=== PATIENT | male | born 1955 | race Two or more races ===

== ENCOUNTER 2025-01-28 10:47 | Inpatient (IN) | payer OTHER ==
[~2025-01-28] VITALS: Ht 180.3 cm; Wt 93.5 kg
--- NOTE | 2025-01-28 11:00 | ECG ---
[facility] Test Date: 2025-01-28 Test Time: 10:55:41 Pat Name: CARRIE HANKINS Department: ED Room: 0292T Gender: M [employer]: NBA : 1955 Requested By: ZEE SANCHES Order Number: [id number] Reading MD: Mann Castillo Measurements Intervals [place] Rate: 50 P: 19 MO: 162 QRS: -21 QRSD: 94 T: 27 QT: 450 QTc: 411 Interpretive Statements Sinus rhythm Borderline left axis deviation Electronically Signed On 01-30-2025 18:44:22 PDT by Mann Castillo Please click the below link to view image of tracing.
--- NOTE | 2025-01-28 11:08 | ED.PDOC ---
HPI (NEURO) HPI Comments This is a 69 year old male presenting to the ED with chief complaint of dizziness. Patient reports that he has been experiencing intermittent dizziness since yesterday. Patient relays that while at the gym yesterday, he sat on a bench to do a work out and began to experience dizziness with an associated feeling of falling off the bench. Patient states that this morning when getting out of bed and standing up, he felt dizzy and needed to lay back down to resolve his symptoms. Patient denies any chest pain, headache, syncope, SOB, N/V, hematemesis, or melena. Chief Complaint: Dizziness Time Seen by MD: 11:06 Reviewed Notes: Nurses Notes, Medications, Allergies Information Source: Patient Mode of Arrival: Ambulatory Severity: Moderate Dizziness/Weakness Severity: Unable to do activities Timing: Days Duration: Intermittent Prehospital treatment: None Onset: At rest, With light exertion Circumstances: Spontaneous Symptoms: Vertigo History of: None Modifying factors: Nothing Past Medical History PAST MEDICAL HISTORY: Cancer (Prostate), HTN Past Medical History (Other): Prediabetes Surgical History: Denies all surgeries Family History Family History: Reviewed,noncontributory to illness, Family hx of Cancer, Family hx of heart antione Social History Smoker: Non-Smoker Alcohol: Denies ETOH Use Drugs: Denies Drug Use Lives In: Home Constitutional: denies: chills, diaphoresis, fatigue, fever, malaise, sweats, weakness, others EENTM: denies: blurred vision, double vision, ear bleeding, ear discharge, ear drainage, ear pain, ear ringing, eye pain, eye redness, hearing loss, mouth pain, mouth swelling, nasal discharge, nose bleeding, nose congestion, nose pain, photophobia, tearing, throat pain, throat swelling, voice changes, others Respiratory: denies: cough, hemoptysis, orthopnea, SOB at rest, shortness of breath, SOB with excertion, stridor, wheezing, others Cardiovascular: denies: chest pain, dizzy spells, diaphoresis, Dyspnea on exertion, edema, irregular heart beat, left arm pain, lightheadedness, palpitations, PND, syncope, others Gastrointestinal: denies: abdomen distended, abdominal pain, blood streaked bowels, constipated, diarrhea, dysphagia, difficulty swallowing, hematemesis, melena, nausea, poor appetite, poor fluid intake, rectal bleeding, rectal pain, vomiting, others Genitourinary: denies: burning, dysuria, flank pain, frequency, hematuria, incontinence, penile discharge, penile sore, pain, testicle pain, testicle swelling, urgency, others Neurological: reports: dizziness; denies: fainting, headache, left sided numbness, left sided weakness, numbness, paresthesia, pre-existing deficit, right sided numbness, right sided weakness, seizure, speech problems, tingling, tremors, weakness, others Musculoskeletal: denies: back pain, gout, joint pain, joint swelling, muscle pain, muscle stiffness, neck pain, others Integumetry: denies: bruises, change in color, change in hair/nails, dryness, laceration, lesions, lumps, rash, wounds, others Allergic/Immunocompromised: denies: Difficulty Healing, Frequent Infections, Hives, Itching, others Hematologic/Lymphatic: denies: anemia, blood clots, easy bleeding, easy bruising, swollen glands, others Endocrine: denies: excessive hunger, excessive sweating, excessive thirst, excessive urination, flushing, intolerance to cold, intolerance to heat, unexplained weight gain, unexplained weight loss, others Psychiatric: denies: anxiety, bipolar disorder, depression, hopeless, panic disorder, schizophrenia, sleepless, suicidal, others All Other Systems: Reviewed and Negative Physical Exam General Appearance: Moderate Distress HEENT: Normal ENT Inspection, Pharynx Normal, TMs Normal Neck: Full Range of Motion, Non-Tender, Normal, Normal Inspection Respiratory: Chest Non-Tender, Lungs Clear, No Accessory Muscle Use, No Respiratory Distress, Normal Breath Sounds Cardiovascular: Bradycardia, No Edema, No JVD, No Murmur, No Gallop Breast Exam: Deferred Gastrointestinal: No Organomegaly, Non Tender, No Pulsatile Mass, Normal Bowel Sounds, Soft Genitalia: Deferred Pelvic: Deferred Rectal: Deferred Extremities: No calf tenderness, Normal capillary refill, No pedal edema Musculoskeletal : Apperance: Normal 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 Was a procedure done?: No Differential Diagnosis (SZ) Seizure: CVA/TIA, Syncope, Other (Bradycardia) X-Ray, Labs, Meds, VS Vital Signs Date Time Temp Pulse Resp B/P (MAP) Pulse Ox O2 Delivery O2 Flow Rate FiO2 01/28/25 12:00 53 01/28/25 10:48 97.9 33 16 134/86 99 97.9 Lab Test 01/28/25 12:00 01/28/25 11:13 01/28/25 11:05 Range/Units Troponin I High Sensitivity 3 L 3 L </=54 ng/L White Blood Count 3.9 L 4.4-10.8 10^3/uL Red Blood Count 5.12 4.5-5.90 10^6/uL Hemoglobin 13.9 13.5-17.5 g/dL Hematocrit 42.0 41.0-53.0 % Mean Corpuscular Volume 82.1 80.0-100.0 fL Mean Corpuscular Hemoglobin 27.1 L 28.0-32.0 pg Mean Corpuscular Hemoglobin Concent 33.0 32.0-36.0 g/dL Red Cell Distribution Width 14.9 H 11.8-14.3 % Platelet Count 271 140-450 10^3/uL Mean Platelet Volume 8.5 6.9-10.8 fL Neutrophils (%) (Auto) 65.0 37.0-80.0 % Lymphocytes (%) (Auto) 17.6 10.0-50.0 % Monocytes (%) (Auto) 14.7 H 0.0-12.0 % Eosinophils (%) (Auto) 2.3 0.0-7.0 % Basophils (%) (Auto) 0.4 0.0-2.0 % Neutrophils # (Auto) 2.6 1.6-8.6 10 ^3/uL Lymphocytes # (Auto) 0.7 0.4-5.4 10 ^3/uL Monocytes # (Auto) 0.6 0-1.3 10 ^3/uL Eosinophils # (Auto) 0.1 0-0.8 10 ^3/uL Basophils # (Auto) 0 0-0.2 10 ^3/uL Nucleated Red Blood Cells 0.0 % Sodium Level 140 136-145 mmol/L Potassium Level 3.6 3.5-5.1 mmol/L Chloride Level 107 98-107 mmol/L Carbon Dioxide Level 26 20-31 mmol/L Anion Gap 7 5-15 Blood Urea Nitrogen 11 9-23 mg/dL Creatinine 0.77 0.700-1.30 mg/dL Glomerular Filtration Rate Calc 96 >90 mL/min BUN/Creatinine Ratio 14.3 10.0-20.0 Serum Glucose 119 H 74-106 mg/dL Calcium Level 8.9 8.7-10.4 mg/dL Magnesium Level 2.0 1.6-2.6 mg/dL Urine Color Light-yellow Yellow Urine Clarity Clear Clear Urine pH 6.0 5.0-9.0 Urine Specific [place] 1.022 1.001-1.035 Urine Protein Negative Negative Urine Ketones Negative Negative Urine Blood Negative Negative /uL Urine Nitrite Negative Negative Urine Bilirubin Negative Negative Urine Urobilinogen Normal Negative mg/dL Urine Leukocyte Esterase Negative Negative /uL Urine RBC 203 0 - 3 /hpf Urine Microscopic WBC 1 0-3 /HPF Urine Squamous Epithelial Cells None seen <5 /hpf Urine Bacteria None seen None Seen /hpf Urine Mucus Few None Seen Urine Yeast (Budding) Occasional None Seen /hpf Urine Glucose Normal Normal mg/dL Chest XR indicates: Old granulomatous disease of the chest without evidence of acute intrathoracic process. Head CT indicates: No acute intracranial abnormality. IV Hep-Lock was established. The patient's heart rate has been as low as 33. The urine test is negative for any infection. The CBC is within normal limits The chemistry panel is within normal limits. There is a concern that the patient is having persistent bradycardia. We contacted [place] and we were given authorization The authorization #[id number] The patient will be admitted Images Reviewed?: Images reviewed and evaluated by me Time of 1ST Reevaluation: 14:25 Reevaluation 1ST: Unchanged Patient Education/Counseling: Diagnosis, Treatment, Prognosis Family Education/Counseling: No Family Present Departure 1 Departure Time of Disposition: 14:29 Impression: Primary Impression: Near syncope Additional Impression: Symptomatic bradycardia Disposition: 09 ADMITTED INPATIENT Admit to: [facility] Condition: Fair Critical Care Note Critical Care Time?: Yes (55 min-critical care time only) Stability Stability form required: Yes Unstable for transfer: Telemetry monitoring, ED Physician Assesment (Clinical assesment) Heart Score Heart Score: Heart Score Response (Comments) Value History Moderate Suspicious 1 EKG Normal 0 Age >65 2 Risk Factors >3 or Hx ASHD 2 Troponin Normal limit 0 Total 5 I personally scribed for ZEE SANCHES MD ([email or web address]) on 01/28/25 at 11:08. Electronically submitted by Inderjit Doss ([email or web address]). I personally scribed for ZEE SANCHES MD ([email or web address]) on 01/28/25 at 12:10. Electronically submitted by Inderjit Doss ([email or web address]). I personally scribed for ZEE SANCHES MD ([email or web address]) on 01/28/25 at 14:20. Electronically submitted by Inderjit Doss ([email or web address]). ZEE SANCHES MD Jan 28, 2025 11:08
[2025-01-28 11:43] LABS: Hematocrit 42.0 % (41.0-53.0); Hemoglobin 13.9 g/dL (13.5-17.5); Mean Corpuscular Hemoglobin 27.1 pg (28.0-32.0); Mean Corpuscular Volume 82.1 fL (80.0-100.0); Nucleated Red Blood Cells % 0.0 %
[2025-01-28 11:49] LABS: Potassium 3.6 mmol/L (3.5-5.1); Sodium 140 mmol/L (136-145)
[2025-01-28 11:50] LABS: Anion Gap 7 (5-15); Carbon Dioxide 26 mmol/L (20-31)
[2025-01-28 11:51] LABS: Calcium 8.9 mg/dL (8.7-10.4); Chloride 107 mmol/L (98-107)
[2025-01-28 11:55] LABS: BUN/Creatinine Ratio 14.3 (10.0-20.0); Blood Urea Nitrogen 11 mg/dL (9-23)
[2025-01-28 11:56] LABS: Glucose 119 mg/dL (74-106)
--- NOTE | 2025-01-28 12:05 | DVH ---
EXAM: XY CHEST PORTABLE HISTORY: Dizziness and near-syncope COMPARISON: None TECHNIQUE: Portable upright AP view of the chest was performed. FINDINGS: No pneumothorax, consolidative infiltrates, or pulmonary edema. There are calcified granulomas in the right lower lobe. The heart is not enlarged. There is thoracic degenerative disc disease. IMPRESSION: Old granulomatous disease of the chest without evidence of acute intrathoracic process.
--- NOTE | 2025-01-28 12:12 | DVH ---
CT HEAD WITHOUT CONTRAST INDICATION: dizziness EXAM DATE: 01/28/2025 11:32 AM COMPARISON: None RADIATION DOSE: CTDIvol: 68.88 mGy, DLP: 1356.96 mGy*cm PROCEDURE: CT scans of the head were obtained from the vertex to the skull base. Sagittal and coronal reconstructions were provided. All CT scans at this medical facility are performed using dose modulation techniques as appropriate t o a performed exam including the following: Automated exposure control was utilized; adjustment of th e MA and/or KV according to patient size; and use of iterative reconstruction technique. FINDINGS: There is sulcal and ventricular prominence. The brainshows normal morphology and donovan-whi te matter differentiation, without intracranial hemorrhage, extra-axial fluid collection, mass effect or acute large vessel infarct. The ventricles are normal in size. The basal cisterns are patent. The skull and visible facial bones are intact. The paranasal sinuses, mastoid air cells and middle ear c avities are well-aerated. The soft tissues of the scalp are unremarkable. IMPRESSION: No acute intracranial abnormality.
[2025-01-28 12:15] LABS: Urine Budding Yeast OCCASIONAL /hpf (None Seen); Urine Protein, UAD Negative (Negative)
[2025-01-28 13:20] VITALS: PULSE 49; RESP 21; O2SAT 98
[2025-01-28] MEDS ORDERED: DEXTROSE (50%) 50ML SYRG IV PRN (15:45)
[2025-01-28] MEDS ORDERED: MORPHINE SULFATE INJ 2 MG/ml SYRG IV PRN (15:45)
[2025-01-28] MEDS ORDERED: NITROGLYCERIN 0.4 MG SL TAB SL PRN (15:45)
[2025-01-28] MEDS ORDERED: ONDANSETRON HCL 4 MG/2 ML VIAL IV PRN (15:45)
[2025-01-28] MEDS ORDERED: ACETAMINOPHEN 325 MG TAB PO PRN (15:45)
[2025-01-28] MEDS: InsuLIN REG 1unit/0.01ml Soln (100units/ml) SC SCH (17:00)
[2025-01-28] MEDS: ACCU-CHEK COMFORT CURVE STRIP VI SCH (17:00)
[2025-01-28] MEDS ORDERED: POTASSIUM CHL 20 Meq TABLET PO ONE (17:30)
[2025-01-28] MEDS ORDERED: MAGNESIUM SULFATE 1GM/100ML 100 ML IV ONE (17:30)
--- NOTE | 2025-01-28 17:39 | DVHINCON2 ---
Date Seen: Jan 28, 2025 Referring Physician MARYJO Stanford Reason for Consultation Bradycardia History of Present Illness This is a pleasant 69-year-old man who presented to the emergency room with a chief complaint of dizziness since yesterday. The patient reports he had a very active day where he played pickleball, performed bike intervals for approximately 50 minutes, and performed some weight lifting on a binge when he developed a sudden onset of left-sided weakness and dizziness for approximately 3 minutes. States earlier this morning he stood up from bed with some dizziness. Denies LOC, syncope, visual disturbances, chest pain, SOB, or palpitations. The patient endorses he took his Flomax therapy at night for the first time along with his routine nightly lisinopril believing this could have triggered some of the symptoms. He also reports intermittent headaches for the past two weeks. He underwent a 12 lead electrocardiogram revealing a normal sinus rhythm with no evidence of atrioventricular blocks or sinus pauses. residential monitor reviewed revealing a heart rate as low as 45 bpm with evidence of intermittent ventricular bigeminy. Serial troponin levels are negative. 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 Past Medical History Past medical history reviewed. No other significant than mentioned above. Past Surgical History Past Surgical history reviewed. No other significant than mentioned above. Family History Family history reviewed. Social History Denies the use of illicit drugs, alcohol, or tobacco use. Allergies: Coded Allergies: Penicillins (Verified Allergy, Unknown, 01/28/25) Home Meds Home medications reviewed. Current Medications Current Medications Medications (Trade) Dose Ordered Sig/Yamila Route PRN Reason Start Time Stop Time Status Last Admin Diagnostic Test (Pha) (Accu-Chek Comfort Curve T) 1 strip ACHS 01/28/25 17:00 UNV Insulin Human Regular (InsuLIN R) ACHS SC 01/28/25 17:00 UNV Dextrose 50 ml UD PRN IV Blood Sugar LESS THAN 60 01/28/25 15:45 UNV Ondansetron HCl (Zofran) 4 mg Q4HP PRN IV NAUSEA / VOMITING 01/28/25 15:45 UNV Enoxaparin Sodium (Lovenox) 40 mg DAILY SC 01/29/25 10:00 UNV Acetaminophen (Tylenol Tablet) 650 mg Q6HP PRN PO PAIN SCALE 1-3 OR TEMP>100.4 01/28/25 15:45 UNV Nitroglycerin (Ntrostat Sublingual) 0.4 mg Q5MINP PRN SL FOR CHEST PAIN 01/28/25 15:45 UNV Morphine Sulfate 2 mg Q30M PRN IV FOR CHEST PAIN 01/28/25 15:45 UNV Aspirin 81 mg DAILY PO 01/29/25 10:00 UNV Lisinopril (Zestril Tablet) 10 mg DAILY PO 01/29/25 10:00 UNV Tamsulosin HCl (Flomax) 0.4 mg QPM PO 01/28/25 18:00 UNV Review of Systems Constitutional: No symptom reported Ears, Nose, & Throat: No symptom reported Eyes: No symptom reported Neurological: Dizziness, left-sided weakness Pulmonary/Respiratory: No symptom reported Cardiovascular: No symptom reported Gastrointestinal: No symptom reported Genitourinary: No symptom reported Musculoskeletal: No symptom reported Skin: No symptom reported Psychiatric: No symptom reported Endocrine: No symptom reported Hemotologic/Lymphatic: No symptom reported Vital Signs Vital Signs Date Time Temp Pulse Resp B/P (MAP) Pulse Ox O2 Delivery O2 Flow Rate FiO2 01/28/25 15:00 97.5 51 18 137/72 (93) 98 97.5 01/28/25 13:20 Room Air* 0 21 Physical Exam General Appearance: Cooperative. Well developed. Obesity. In no acute distress Head Exam: Normal inspection Neck Exam: Normal inspection. Non-tender. Normal alignment Pulmonary/Respiratory: Chest non-tender. Clear bilateral breath sounds Cardiovascular/Chest: Regular rate and rhythm. S1, S2. SR with intermittent bigeminy. No murmurs. No JVD. Peripheral Pulses: 2+ Radial (R). 2+ Radial (L). 2+ Pedal (R). 2+ Pedal (L) Abdominal Exam: Normal bowel sounds. Soft. Ankle Exam: Negative ankle edema Lower extremities: Negative lower extremity edema Neuro/Mental Status: A&O x4. Coherent Thoughts/Psych: Normal thought pattern. Appropriate mood and affect. Good judgement and insight Appearance: In no acute distress Skin Exam: Normal inspection. Normal color. Warm. Dry Labs/Diagnostic Data Labs Test 01/28/25 12:00 01/28/25 11:13 01/28/25 11:05 Range/Units Troponin I High Sensitivity 3 L </=54 ng/L White Blood Count 3.9 L 4.4-10.8 10^3/uL Red Blood Count 5.12 4.5-5.90 10^6/uL Hemoglobin 13.9 13.5-17.5 g/dL Hematocrit 42.0 41.0-53.0 % Mean Corpuscular Volume 82.1 80.0-100.0 fL Mean Corpuscular Hemoglobin 27.1 L 28.0-32.0 pg Mean Corpuscular Hemoglobin Concent 33.0 32.0-36.0 g/dL Red Cell Distribution Width 14.9 H 11.8-14.3 % Platelet Count 271 140-450 10^3/uL Mean Platelet Volume 8.5 6.9-10.8 fL Neutrophils (%) (Auto) 65.0 37.0-80.0 % Lymphocytes (%) (Auto) 17.6 10.0-50.0 % Monocytes (%) (Auto) 14.7 H 0.0-12.0 % Eosinophils (%) (Auto) 2.3 0.0-7.0 % Basophils (%) (Auto) 0.4 0.0-2.0 % Neutrophils # (Auto) 2.6 1.6-8.6 10 ^3/uL Lymphocytes # (Auto) 0.7 0.4-5.4 10 ^3/uL Monocytes # (Auto) 0.6 0-1.3 10 ^3/uL Eosinophils # (Auto) 0.1 0-0.8 10 ^3/uL Basophils # (Auto) 0 0-0.2 10 ^3/uL Nucleated Red Blood Cells 0.0 % Sodium Level 140 136-145 mmol/L Potassium Level 3.6 3.5-5.1 mmol/L Chloride Level 107 98-107 mmol/L Carbon Dioxide Level 26 20-31 mmol/L Anion Gap 7 5-15 Blood Urea Nitrogen 11 9-23 mg/dL Creatinine 0.77 0.700-1.30 mg/dL Glomerular Filtration Rate Calc 96 >90 mL/min BUN/Creatinine Ratio 14.3 10.0-20.0 Serum Glucose 119 H 74-106 mg/dL Calcium Level 8.9 8.7-10.4 mg/dL Magnesium Level 2.0 1.6-2.6 mg/dL Urine Color Light-yellow Yellow Urine Clarity Clear Clear Urine pH 6.0 5.0-9.0 Urine Specific [place] 1.022 1.001-1.035 Urine Protein Negative Negative Urine Ketones Negative Negative Urine Blood Negative Negative /uL Urine Nitrite Negative Negative Urine Bilirubin Negative Negative Urine Urobilinogen Normal Negative mg/dL Urine Leukocyte Esterase Negative Negative /uL Urine RBC 203 0 - 3 /hpf Urine Microscopic WBC 1 0-3 /HPF Urine Squamous Epithelial Cells None seen <5 /hpf Urine Bacteria None seen None Seen /hpf Urine Mucus Few None Seen Urine Yeast (Budding) Occasional None Seen /hpf Urine Glucose Normal Normal mg/dL Assessment Sinus bradycardia with intermittent ventricular bigeminy Rule out chronotropic incompetence Rule out structural heart disease Rule out orthostatic hypotension Prostate cancer with hx of radiation & current chemotherapy [id number] diabetes mellitus Hypertension Obesity Plan/Recommendation (Dr. Castillo) The patient with sinus bradycardia and no evidence of atrioventricular blocks or sinus pauses presents with intermittent ventricular bigeminy. Replenish potassium and magnesium levels. Obtain a transthoracic echocardiogram to evaluate cardiac function. Scheduled for a chronotropic response evaluation at first available. Obtain a set of orthostatic vital signs. Obtain UDS. Continue DVT/VTE prophylaxis. Monitor ECG changes closely and notify. Further orders per clinical course. Thank you for allowing us to participate in this patient's care. Please call if you have any questions or concerns. This medical document was created using an electronic medical record system with voice recognition software and computerized dictation system. Although this document has been carefully reviewed, there might still be some phonetic and typographical errors. Occasional wrong-word or ``sound-alike substitutions may have occurred due to the inherent limitations of voice recognition software. These areas are purely typographical due to imperfections of the software programs and do not reflect any compromise in the patient's medical care. Please read the chart carefully and recognize, using context, where these substitutions have occurred. Plan discussed with: Patient, Other NYHA Physical activity limitations: NA Date of Service: Jan 28, 2025 Billing Provider: KANDIS FERRER Cardiology Common Codes: [id number] INP/OBS CARE (High) KANDIS FERRER Jan 28, 2025 17:39
[2025-01-28 17:45] VITALS: BP 153/87; PULSE 61; RESP 18; TEMP 98.1; O2SAT 99
[2025-01-28 18:05] LABS: Amphetamine Screen, Urine Neg (NEGATIVE); Barbiturate Scree,Urine Neg (NEGATIVE); Benzodiazephine Screen, Urine Neg (NEGATIVE); Cannabinoid Screen, Urine Neg (NEGATIVE); Cocaine Screen, Urine Neg (NEGATIVE); Opiate Scree,Urine Neg (NEGATIVE); Phencyclidine Screen, Urine Neg (NEGATIVE)
[2025-01-28 18:06] VITALS: PULSE 61; RESP 16; O2SAT 99
[2025-01-28 18:08] LABS: Cholesterol 159 mg/dL (< 200); HDL Cholesterol 46 mg/dL (40-59); Triglycerides 244 mg/dL (< 150)
[2025-01-28] MEDS: TAMSULOSIN HYDROCHLORIDE 0.4 MG CAP PO SCH (18:38)
[2025-01-28] MEDS ORDERED: ABIR250T PO (19:01)
[2025-01-28] MEDS ORDERED: LISI2.5T47 PO (19:01)
[2025-01-28] MEDS ORDERED: PRE1T PO (19:01)
--- NOTE | 2025-01-28 19:34 | DVHHP2 ---
History of Present Illness Reason for Visit: Dizziness History of Present Illness 69-year-old male presents for evaluation of dizziness. Patient reports developing dizziness intermittently since yesterday. He states his symptoms become worse in the morning. He states having an episode of substernal chest pressure that lasted approximately 20 minutes today. No nausea or vomiting. On arrival to the emergency department patient was noted to be bradycardic with a heart rate in the 30s. Past Medical History BPH, hypertension, diabetes mellitus Past Surgical History Denies Family History Noncontributory Smoke: No ALCOHOL: none Drugs: None Lives: with Family Review of Systems Review of Systems Review of systems are currently negative otherwise addressed in HPI. Allergies: Coded Allergies: Penicillins (Verified Allergy, Unknown, 01/28/25) Medications Current Medications Medications Dose Ordered Sig/Yamila Route Start Time Stop Time Status Last Admin Dose Admin Diagnostic Test (Pha) 1 strip ACHS 01/28/25 17:00 01/28/25 17:00 1 STRIP Insulin Human Regular ACHS SC 01/28/25 17:00 01/28/25 17:00 3 UNITS Dextrose 50 ml UD PRN IV 01/28/25 15:45 Ondansetron HCl 4 mg Q4HP PRN IV 01/28/25 15:45 Enoxaparin Sodium 40 mg DAILY SC 01/29/25 10:00 UNV Acetaminophen 650 mg Q6HP PRN PO 01/28/25 15:45 Nitroglycerin 0.4 mg Q5MINP PRN SL 01/28/25 15:45 Morphine Sulfate 2 mg Q30M PRN IV 01/28/25 15:45 Aspirin 81 mg DAILY PO 01/29/25 10:00 Lisinopril 10 mg DAILY PO 01/29/25 10:00 Tamsulosin HCl 0.4 mg QPM PO 01/28/25 18:00 01/28/25 18:38 0.4 MG Exam Vital Signs Vital Signs Date Time Temp Pulse Resp B/P (MAP) Pulse Ox O2 Delivery O2 Flow Rate FiO2 01/28/25 18:06 61 16 99 Room Air* 0 21 01/28/25 17:45 98.1 153/87 (109) 98.1 Exam Gen: 69-year-old male in mild distress. Skin: Warm, dry, normal color and texture, no rash. HEENT: Normocephalic atraumatic, mucous membranes moist and pink. Neck: Cervical and supraclavicular nodes normal without enlargement, trachea is midline, thyroid gland is normal without masses. Pulmonary: Clear to auscultation and percussion bilaterally. Cardiac: Bradycardia, intermittent Abdomen: Soft, nontender, nondistended, bowel sounds present all 4 quadrants, no guarding, no rigidity, no organomegaly. Extremities: No cyanosis, clubbing, no edema Neuro: Cranial nerves II through XII grossly intact, normal affect and speech, no focal motor deficits. Labs/Xrays ORDERING PHYSICIAN: ZEE SANCHES MD PROCEDURE(s): CXRP - CHEST PORTABLE REASON: Dizziness and near-syncope ORDER NUMBER(s): [id number], ACCESSION NUMBER(s): [id number] EXAM: XY CHEST PORTABLE HISTORY: Dizziness and near-syncope COMPARISON: None TECHNIQUE: Portable upright AP view of the chest was performed. FINDINGS: No pneumothorax, consolidative infiltrates, or pulmonary edema. There are calcified granulomas in the right lower lobe. The heart is not enlarged. There is thoracic degenerative disc disease. IMPRESSION: Old granulomatous disease of the chest without evidence of acute intrathoracic process. ATED BY: NANCY MCDONOUGH MD ORDERING PHYSICIAN: ZEE SANCHES MD PROCEDURE(s): HWOCT - HEAD WITHOUT CONTRAST REASON: dizziness ORDER NUMBER(s): [id number], ACCESSION NUMBER(s): [id number] CT HEAD WITHOUT CONTRAST INDICATION: dizziness EXAM DATE: 01/28/2025 11:32 AM COMPARISON: None RADIATION DOSE: CTDIvol: 68.88 mGy, DLP: 1356.96 mGy*cm PROCEDURE: CT scans of the head were obtained from the vertex to the skull base. Sagittal and coronal reconstructions were provided. All CT scans at this medical facility are performed using dose modulation techniques as appropriate to a performed exam including the following: Automated exposure control was utilized; adjustment of the MA and/or KV according to patient size; and use of iterative reconstruction technique. FINDINGS: There is sulcal and ventricular prominence. The brainshows normal morphology and donovan-white matter differentiation, without intracranial hemorrhage, extra-axial fluid collection, mass effect or acute large vessel infarct. The ventricles are normal in size. The basal cisterns are patent. The skull and visible facial bones are intact. The paranasal sinuses, mastoid air cells and middle ear cavities are well-aerated. The soft tissues of the scalp are unremarkable. IMPRESSION: No acute intracranial abnormality. Labs Test 01/28/25 18:01 01/28/25 12:00 01/28/25 11:19 01/28/25 11:13 Range/Units POC Glucose 184 H 70-106 mg/dl Troponin I High Sensitivity 3 L </=54 ng/L Urine Opiates Screen Neg NEGATIVE Urine Fentanyl Screen Neg NEGATIVE Urine Barbiturates Screen Neg NEGATIVE Urine Phencyclidine Screen Neg NEGATIVE Urine Amphetamines Screen Neg NEGATIVE Urine Benzodiazepines Screen Neg NEGATIVE Urine Cocaine Screen Neg NEGATIVE Urine Cannabinoids Screen Neg NEGATIVE White Blood Count 3.9 L 4.4-10.8 10^3/uL Red Blood Count 5.12 4.5-5.90 10^6/uL Hemoglobin 13.9 13.5-17.5 g/dL Hematocrit 42.0 41.0-53.0 % Mean Corpuscular Volume 82.1 80.0-100.0 fL Mean Corpuscular Hemoglobin 27.1 L 28.0-32.0 pg Mean Corpuscular Hemoglobin Concent 33.0 32.0-36.0 g/dL Red Cell Distribution Width 14.9 H 11.8-14.3 % Platelet Count 271 140-450 10^3/uL Mean Platelet Volume 8.5 6.9-10.8 fL Neutrophils (%) (Auto) 65.0 37.0-80.0 % Lymphocytes (%) (Auto) 17.6 10.0-50.0 % Monocytes (%) (Auto) 14.7 H 0.0-12.0 % Eosinophils (%) (Auto) 2.3 0.0-7.0 % Basophils (%) (Auto) 0.4 0.0-2.0 % Neutrophils # (Auto) 2.6 1.6-8.6 10 ^3/uL Lymphocytes # (Auto) 0.7 0.4-5.4 10 ^3/uL Monocytes # (Auto) 0.6 0-1.3 10 ^3/uL Eosinophils # (Auto) 0.1 0-0.8 10 ^3/uL Basophils # (Auto) 0 0-0.2 10 ^3/uL Nucleated Red Blood Cells 0.0 % Sodium Level 140 136-145 mmol/L Potassium Level 3.6 3.5-5.1 mmol/L Chloride Level 107 98-107 mmol/L Carbon Dioxide Level 26 20-31 mmol/L Anion Gap 7 5-15 Blood Urea Nitrogen 11 9-23 mg/dL Creatinine 0.77 0.700-1.30 mg/dL Glomerular Filtration Rate Calc 96 >90 mL/min BUN/Creatinine Ratio 14.3 10.0-20.0 Serum Glucose 119 H 74-106 mg/dL Hemoglobin A1c 6.6 H <5.7 % A1C Calcium Level 8.9 8.7-10.4 mg/dL Magnesium Level 2.0 1.6-2.6 mg/dL Triglycerides Level 244 H < 150 mg/dL Cholesterol Level 159 < 200 mg/dL LDL Cholesterol 88 < 100 mg/dL HDL Cholesterol 46 40-59 mg/dL Thyroid Stimulating Hormone (TSH) 1.66 0.55-4.78 uIU/mL Test 01/28/25 11:05 Range/Units Urine Color Light-yellow Yellow Urine Clarity Clear Clear Urine pH 6.0 5.0-9.0 Urine Specific [place] 1.022 1.001-1.035 Urine Protein Negative Negative Urine Ketones Negative Negative Urine Blood Negative Negative /uL Urine Nitrite Negative Negative Urine Bilirubin Negative Negative Urine Urobilinogen Normal Negative mg/dL Urine Leukocyte Esterase Negative Negative /uL Urine RBC 203 0 - 3 /hpf Urine Microscopic WBC 1 0-3 /HPF Urine Squamous Epithelial Cells None seen <5 /hpf Urine Bacteria None seen None Seen /hpf Urine Mucus Few None Seen Urine Yeast (Budding) Occasional None Seen /hpf Urine Glucose Normal Normal mg/dL SEPSIS Sepsis Screen Date sepsis recognized/suspect: Jan 28, 2025 Time Sepsis recognized/suspect: 1320 Recent Procedure: No On Antibiotic Therapy: No Respiratory Rate >20: No Heart Rate >90: No Temp<36 C (96.8 F) or >38.3 C: No SBP <90 or MAP <65 mmHG: No New Acute Mental Status Change: No Is the patient on CPAP, BIPAP,: No Physician Orders * Cardiology Consult (01/28/25 15:34) Basic Metabolic Panel (01/29/25 04:00) Glucose Blood (Accu-Chek Comfort Curve T (01/28/25 17:00) Insulin R (Human) (Insulin R) (01/28/25 17:00) Dextrose 50% Syringe (01/28/25 15:45) Admit (01/28/25 15:34) Ondansetron Hcl (Zofran) (01/28/25 15:45) Enoxaparin Sodium (Lovenox) (01/29/25 10:00) Cardiac Diet-2gna,Lofat,Lochol (01/28/25 Dinner) Condition: Fair (01/28/25 15:34) Acetaminophen Tablet (Tylenol Tablet) (01/28/25 15:45) Bedrest With Bathroom Privileg (01/28/25:34) Nitroglycerin Sublingual (Ntrostat Subli (01/28/25 15:45) Morphine Sulfate Injection (01/28/25 15:45) Stat Ekg For Chest Pain (01/28/25:34) Notify Md Of Changes From Base (01/28/25 15:34) Gasket Notcher For 24 Hours (01/28/25 15:34) Emergency Dysrhythmia Protocol (01/28/25 15:34) Rhythm Strips Once Every Shift (01/28/25 15:34) Oxygen By Nasal Cannula (01/28/25:34) Aspirin Tablet (01/29/25 10:00) Lisinopril Tablet (Zestril Tablet) (01/29/25 10:00) Tamsulosin Hydrochloride (Flomax) (01/28/25 18:00) Cardiolite Multiple (01/28/25 17:22) Orthostatic Vital Signs (01/28/25 17:26) Orthostatic Vital Signs (01/28/25 ) Communication Order (01/28/25 17:26) Hepatitis B Surface Antibody (01/28/25 18:51) Hepatitis C Antibody (01/28/25 18:51) Vital Signs Date Time Temp Pulse Resp B/P (MAP) Pulse Ox O2 Delivery O2 Flow Rate FiO2 01/28/25 18:06 61 16 99 Room Air* 0 21 01/28/25 17:45 98.1 61 18 153/87 (109) 99 98.1 01/28/25 17:00 97.8 69 12 131/76 (94) 94 97.8 01/28/25 15:00 97.5 51 18 137/72 (93) 98 97.5 01/28/25 13:20 97.5 49 21 151/82 (105) 98 97.5 01/28/25 13:20 49 21 98 Room Air* 0 21 01/28/25 12:00 53 Laboratory Tests Test 01/28/25 11:13 White Blood Count 3.9 10^3/uL (4.4-10.8) L Medications Medications Dose Ordered Sig/Yamila Route Start Time Stop Time Status Last Admin Dose Admin Diagnostic Test (Pha) 1 strip ACHS 01/28/25 17:00 01/28/25 17:00 1 STRIP Insulin Human Regular ACHS SC 01/28/25 17:00 01/28/25 17:00 3 UNITS Tamsulosin HCl 0.4 mg QPM PO 01/28/25 18:00 01/28/25 18:38 0.4 MG Assessment/Plan Assessment/Plan Assessment Symptomatic bradycardia Hypertension Diabetes mellitus Plan Admit the patient to telemetry to the hospitalist Cardiology consultation Echocardiogram pending Resume home medications Continue treatment per orders. Plan discussed with: Patient My Orders Orders - JANNETH LOUIS Procedure Category Date Status Time * Cardiology Consult CONS 01/28/25 Transmitted 15:34 Basic Metabolic Panel LAB 01/29/25 Verified 04:00 Glucose Blood PHA 01/28/25 In Process (Accu-Chek Comfort 17:00 Insulin R (Human) PHA 01/28/25 In Process (Insulin R) 17:00 Dextrose 50% Syringe PHA 01/28/25 In Process 15:45 Admit ADMIT 01/28/25 Transmitted 15:34 Ondansetron Hcl PHA 01/28/25 In Process (Zofran) 15:45 Enoxaparin Sodium PHA 01/29/25 Logged (Lovenox) 10:00 Cardiac DIET 01/28/25 Transmitted Diet-2gna,Lofat,Lochol Dinner Condition: Fair VALERIO 01/28/25 In Process 15:34 Acetaminophen Tablet PHA 01/28/25 In Process (Tylenol Tablet) 15:45 Bedrest With Bathroom VALERIO 01/28/25 In Process Privileg 15:34 Nitroglycerin PHA 01/28/25 In Process Sublingual (Ntrostat 15:45 Morphine Sulfate PHA 01/28/25 In Process Injection 15:45 Stat Ekg For Chest VALERIO 01/28/25 In Process Pain 15:34 Notify Of Changes VALERIO 01/28/25 In Process From Base 15:34 Gasket Notcher For VALERIO 01/28/25 In Process 24 Hours 15:34 Emergency Dysrhythmia VALERIO 01/28/25 In Process Protocol 15:34 Rhythm Strips Once VALERIO 01/28/25 In Process Every Shift 15:34 Oxygen By Nasal RT 01/28/25 Transmitted Cannula 15:34 Aspirin Tablet PHA 01/29/25 In Process 10:00 Lisinopril Tablet PHA 01/29/25 In Process (Zestril Tablet) 10:00 Tamsulosin PHA 01/28/25 In Process Hydrochloride (Flomax) 18:00 Hepatitis B Surface LAB 01/28/25 In Process Antibody 18:51 Hepatitis C Antibody LAB 01/28/25 In Process 18:51 Date of Service: Jan 28, 2025 Billing Provider: JANNETH LOUIS Common Visit Codes: [id number] INP/OBS CARE (HIGH) JANNETH LOUIS Jan 28, 2025 19:34
[2025-01-28 20:00] VITALS: PULSE 62; RESP 18; O2SAT 97
[2025-01-28 21:00] VITALS: BP 129/64; PULSE 53; RESP 18; TEMP 97.8; O2SAT 97
[2025-01-29 01:00] VITALS: BP 127/66; PULSE 55; RESP 18; TEMP 97.9; O2SAT 96
[2025-01-29 05:00] VITALS: BP_SYST 150; BP_SYST 153; BP_SYST 156; BP_DIAS 76; BP_DIAS 93; BP_DIAS 96; PULSE 50; PULSE 53; RESP 17; TEMP 97.7; O2SAT 95; O2SAT 98
[2025-01-29] MEDS ORDERED: TAMS-35 PO (07:23)
[2025-01-29 07:57] LABS: Potassium 4.0 mmol/L (3.5-5.1); Sodium 142 mmol/L (136-145)
[2025-01-29 07:58] LABS: Anion Gap 8 (5-15); Calcium 9.1 mg/dL (8.7-10.4); Carbon Dioxide 27 mmol/L (20-31)
[2025-01-29 08:00] VITALS: PULSE 43; PULSE 72; RESP 16; O2SAT 98
[2025-01-29 08:01] LABS: Chloride 107 mmol/L (98-107)
[2025-01-29 08:03] LABS: BUN/Creatinine Ratio 12.2 (10.0-20.0); Blood Urea Nitrogen 10 mg/dL (9-23)
[2025-01-29 08:04] LABS: Glucose 109 mg/dL (74-106)
[2025-01-29 09:00] VITALS: BP 143/88; PULSE 47; RESP 18; TEMP 97.6; O2SAT 99
--- NOTE | 2025-01-29 09:39 | DVHCARD ---
Cardiology Stress Test [place] Treadmill Stress Test [place] Referring MD: MARYJO Ferrer Protocol: Callum (without cardiolite) Reason for referral: Other (Chronotropic response evaluation) Target heart Rate:@85%: 129 Percent MPHR: 149 METS: 10.10 Resting Heart rate: 54 Resting Blood Pressure: 133/80 Exercise Heart Rate: 129 Exercise Blood Pressure: 242/91 Reason for Termination of Test: Completion of Protocol Baseline EKG: Sinus rhythm with ventricular bigeminy Stress EKG: Sinus tachycardia with intermittent PVCs and no ST-T wave segm changes Functional Capacity: Good Normal Heart Rate Response: Adequate Blood Pressure Response: Hypertensive Clinical response: Non-ischemic Arrhythmia?: No Cardiolite Injected?: No ST-T Changes: Non/Minimal Probability of Inducible Ische: Low Comments: Uneventful Callum protocol with optimal chronotropic response Date of Service: Jan 29, 2025 Billing Provider: KANDIS FERRER Cardiology Common Codes: PROCEDURE ONLY Treadmill for Chron Res Eval: [id number], INTERPRETATION, RPT KANDIS FERRER Jan 29, 2025 09:39
[2025-01-29 09:45] VITALS: BP 133/80; PULSE 54; RESP 18
--- NOTE | 2025-01-29 09:47 | DVHPN2 ---
Consult Progress Note Date Seen: Jan 29, 2025 Subjective Review of Systems: CVS:Normal, RESPIRATORY:Normal, NEURO:Abnormal Other Systems: C/o light dizziness with positional changes Objective vital signs Vital Sign Date Time Temp Pulse Resp B/P (MAP) Pulse Ox O2 Delivery O2 Flow Rate FiO2 01/29/25 09:00 97.6 47 18 143/88 (106) 99 97.6 01/29/25 08:00 Room Air* 0 21 Total Intake and Output 01/28/25 01/28/25 01/29/25 15:00 23:00 07:00 Intake Total 800 ml Balance 800 ml medications Current Medications Medications Dose Ordered Sig/Yamila Route Start Time Stop Time Status Last Admin Dose Admin Diagnostic Test (Pha) 1 strip ACHS 01/28/25 17:00 01/28/25 21:20 1 STRIP Insulin Human Regular ACHS SC 01/28/25 17:00 01/28/25 17:00 3 UNITS Dextrose 50 ml UD PRN IV 01/28/25 15:45 Ondansetron HCl 4 mg Q4HP PRN IV 01/28/25 15:45 Enoxaparin Sodium 40 mg DAILY SC 01/29/25 10:00 Acetaminophen 650 mg Q6HP PRN PO 01/28/25 15:45 Nitroglycerin 0.4 mg Q5MINP PRN SL 01/28/25 15:45 Morphine Sulfate 2 mg Q30M PRN IV 01/28/25 15:45 Aspirin 81 mg DAILY PO 01/29/25 10:00 Lisinopril 10 mg DAILY PO 01/29/25 10:00 Tamsulosin HCl 0.4 mg QPM PO 01/28/25 18:00 01/28/25 18:38 0.4 MG Examination: LUNGS:Normal, CVS:Normal, NEURO:Normal laboratory and microbiology Laboratory Tests 01/29/25 06:56 01/28/25 11:13 Test 01/29/25 06:56 Range/Units Serum Glucose 109 H 74-106 mg/dL Problem List/Assessment/Plan Problem List/Assessment/Plan Sinus bradycardia with intermittent ventricular bigeminy Hypertriglyceridemia, newly diagnosed Prostate cancer with hx of radiation & current chemotherapy Ird-iqqtsji-xawjzrwxk diabetes mellitus Hypertension Obesity Plan/Recommendation (Dr. 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 He underwent an optimal chronotropic response evaluation (see report). A preliminary transthoracic echocardiogram revealed an optimal LV function. Orthostatic vital signs are negative. Dizziness could be secondary to alpha pham use in addition to antihypertensive therapy combined HS. Consider taking them at different times during the day. Initiate BP log and take to next PCP appointment. There is no further cardiac work-up indicated at this time. Kindly call with any questions or concerns. Thank you for allowing us to participate in this patient's care. Please call if you have any questions or concerns. This medical document was created using an electronic medical record system with voice recognition software and computerized dictation system. Although this document has been carefully reviewed, there might still be some phonetic and typographical errors. Occasional wrong-word or ``sound-alike substitutions may have occurred due to the inherent limitations of voice recognition software. These areas are purely typographical due to imperfections of the software programs and do not reflect any compromise in the patient's medical care. Please read the chart carefully and recognize, using context, where these substitutions have occurred. Plan discussed with: Patient, Other Date of Service: Jan 29, 2025 Billing Provider: KANDIS FERRER Cardiology Common Codes: [id number](High KANDIS FERRER Jan 29, 2025 09:47
[2025-01-29 10:17] LABS: Hepatitis C Antibody Negative (Negative)
[2025-01-29] MEDS: LISINOPRIL 5 MG TAB PO SCH (10:37)
[2025-01-29] MEDS: ENOXAPARIN SOD 40 MG/0.4 ML SYRINGE SC SCH (10:38)
--- NOTE | 2025-01-29 13:17 | DVHPN2 ---
Reviewed: Care Plan, H&P, Labs, Medications, Previous Orders, Radiology Changes from previous H/P or p: No Changes Objective Vitals Vital Signs Date Time Temp Pulse Resp B/P (MAP) Pulse Ox O2 Delivery O2 Flow Rate FiO2 01/29/25 10:37 143/88 01/29/25 09:45 54 18 70 01/29/25 09:00 97.6 99 97.6 01/29/25 08:00 Room Air* 0 21 Intake/Output Intake and Output 01/29/25 06:59 Intake Total 800 ml Balance 800 ml Intake Oral 800 ml # Voids 3 Medications Current Medications Medications Dose Ordered Sig/Yamila Route Start Time Stop Time Status Last Admin Dose Admin Diagnostic Test (Pha) 1 strip ACHS 01/28/25 17:00 01/29/25 11:30 1 STRIP Insulin Human Regular ACHS SC 01/28/25 17:00 01/28/25 17:00 3 UNITS Dextrose 50 ml UD PRN IV 01/28/25 15:45 Ondansetron HCl 4 mg Q4HP PRN IV 01/28/25 15:45 Enoxaparin Sodium 40 mg DAILY SC 01/29/25 10:00 01/29/25 10:38 40 MG Acetaminophen 650 mg Q6HP PRN PO 01/28/25 15:45 Nitroglycerin 0.4 mg Q5MINP PRN SL 01/28/25 15:45 Morphine Sulfate 2 mg Q30M PRN IV 01/28/25 15:45 Aspirin 81 mg DAILY PO 01/29/25 10:00 01/29/25 10:37 81 MG Lisinopril 10 mg DAILY PO 01/29/25 10:00 01/29/25 10:37 10 MG Tamsulosin HCl 0.4 mg QPM PO 01/28/25 18:00 01/28/25 18:38 0.4 MG Laboratory Results Laboratory Tests 01/28/25 11:13 01/29/25 06:56 Chemistry Test 01/29/25 06:56 Calcium Level 9.1 mg/dL (8.7-10.4) Urinalysis Test 01/28/25 11:05 Urine Color Light-yellow (Yellow) Urine Clarity Clear (Clear) Urine pH 6.0 (5.0-9.0) Urine Specific [place] 1.022 (1.001-1.035) Urine Protein Negative (Negative) Urine Ketones Negative (Negative) Urine Blood Negative /uL (Negative) Urine Nitrite Negative (Negative) Urine Bilirubin Negative (Negative) Urine Urobilinogen Normal mg/dL (Negative) Urine Leukocyte Esterase Negative /uL (Negative) Urine RBC 203 /hpf (0 - 3) Urine Microscopic WBC 1 /HPF (0-3) Urine Squamous Epithelial Cells None seen /hpf (<5) Urine Bacteria None seen /hpf (None Seen) Urine Mucus Few (None Seen) Urine Yeast (Budding) Occasional /hpf (None Urine Glucose Normal mg/dL (Normal) Labs and/or images reviewed: Labs reviewed by me, Image(s) reviewed by me Assessment/Plan Assessment/Plan Sinus bradycardia with intermittent ventricular bigeminy, possibly secondary to alpha pham use in addition to the blood pressure medication cardiology consult appreciated no further cardiac workup Hypertriglyceridemia, newly diagnosed Prostate cancer with hx of radiation & current chemotherapy Mfw-rvcvmxv-hjepkyzkq diabetes mellitus Hypertension Obesity Feels better and wants to go home Cleared for discharge by Cardiology Plan discussed with: Patient Date of Service: Jan 29, 2025 Billing Provider: JAZMINE SPEARS MD Common Visit Codes: [id number] INP/OBS CARE(HIGH) JAZMINE SPEARS MD Jan 29, 2025 13:17
--- NOTE | 2025-01-29 13:24 | DVHDS2 ---
Discharge Summary Date of Admission Jan 28, 2025 at 15:34 Date of Discharge: Jan 29, 2025 Admitting Diagnosis Dizziness Wounds: None Labs/Diagnostic Data: Laboratory Results Test 01/29/25 11:47 01/29/25 06:56 01/28/25 12:00 01/28/25 11:19 POC Glucose 124 mg/dl (70-106) Sodium Level 142 mmol/L (136-145) Potassium Level 4.0 mmol/L (3.5-5.1) Chloride Level 107 mmol/L (98-107) Carbon Dioxide Level 27 mmol/L (20-31) Anion Gap 8 (5-15) Blood Urea Nitrogen 10 mg/dL (9-23) Creatinine 0.82 mg/dL (0.700-1.30) Glomerular Filtration Rate Calc 94 mL/min (>90) BUN/Creatinine Ratio 12.2 (10.0-20.0) Serum Glucose 109 mg/dL (74-106) Calcium Level 9.1 mg/dL (8.7-10.4) Troponin I High Sensitivity 3 ng/L (</=54) Urine Opiates Screen Neg (NEGATIVE) Urine Fentanyl Screen Neg (NEGATIVE) Urine Barbiturates Screen Neg (NEGATIVE) Urine Phencyclidine Screen Neg (NEGATIVE) Urine Amphetamines Screen Neg (NEGATIVE) Urine Benzodiazepines Screen Neg (NEGATIVE) Urine Cocaine Screen Neg (NEGATIVE) Urine Cannabinoids Screen Neg (NEGATIVE) Test 01/28/25 11:13 01/28/25 11:05 White Blood Count 3.9 10^3/uL (4.4-10.8) Red Blood Count 5.12 10^6/uL (4.5-5.90) Hemoglobin 13.9 g/dL (13.5-17.5) Hematocrit 42.0 % (41.0-53.0) Mean Corpuscular Volume 82.1 fL (80.0-100.0) Mean Corpuscular Hemoglobin 27.1 pg (28.0-32.0) Mean Corpuscular Hemoglobin Concent 33.0 g/dL (32.0-36.0) Red Cell Distribution Width 14.9 % (11.8-14.3) Platelet Count 271 10^3/uL (140-450) Mean Platelet Volume 8.5 fL (6.9-10.8) Neutrophils (%) (Auto) 65.0 % (37.0-80.0) Lymphocytes (%) (Auto) 17.6 % (10.0-50.0) Monocytes (%) (Auto) 14.7 % (0.0-12.0) Eosinophils (%) (Auto) 2.3 % (0.0-7.0) Basophils (%) (Auto) 0.4 % (0.0-2.0) Neutrophils # (Auto) 2.6 10 ^3/uL (1.6-8.6) Lymphocytes # (Auto) 0.7 10 ^3/uL (0.4-5.4) Monocytes # (Auto) 0.6 10 ^3/uL (0-1.3) Eosinophils # (Auto) 0.1 10 ^3/uL (0-0.8) Basophils # (Auto) 0 10 ^3/uL (0-0.2) Nucleated Red Blood Cells 0.0 % Hemoglobin A1c 6.6 % A1C (<5.7) Magnesium Level 2.0 mg/dL (1.6-2.6) Triglycerides Level 244 mg/dL (< 150) Cholesterol Level 159 mg/dL (< 200) LDL Cholesterol 88 mg/dL (< 100) HDL Cholesterol 46 mg/dL (40-59) Thyroid Stimulating Hormone (TSH) 1.66 uIU/mL (0.55-4.78) Hepatitis B Surface Antibody Negative (Negative) Hepatitis C Antibody Negative (Negative) Urine Color Light-yellow (Yellow) Urine Clarity Clear (Clear) Urine pH 6.0 (5.0-9.0) Urine Specific Hanna 1.022 (1.001-1.035) Urine Protein Negative (Negative) Urine Ketones Negative (Negative) Urine Blood Negative /uL (Negative) Urine Nitrite Negative (Negative) Urine Bilirubin Negative (Negative) Urine Urobilinogen Normal mg/dL (Negative) Urine Leukocyte Esterase Negative /uL (Negative) Urine RBC 203 /hpf (0 - 3) Urine Microscopic WBC 1 /HPF (0-3) Urine Squamous Epithelial Cells None seen /hpf (<5) Urine Bacteria None seen /hpf (None Seen) Urine Mucus Few (None Seen) Urine Yeast (Budding) Occasional /hpf (None Urine Glucose Normal mg/dL (Normal) Other Laboratory Tests 01/29/25 06:56 01/28/25 11:13 Brief Hx & Hospital Course: 69-year-old male with a history of hypertension diabetes prostate cancer with a history of radiation and current chemotherapy hypertriglyceridemia newly diagnosed came in for sinus bradycardia and admitted found to have ventricular bigeminy cardiology consult was obtained felt with the dizziness was because of patient is taking blood pressure medications at the same time including alpha pham. Echocardiogram normal patient was advised to take blood pressure medications different times. Cardiology cleared for discharge patient is discharged home he will follow up with his Dr at [facility] Consults/Reason for consult Cardiology Operations or Procedures Echocardiogram Condition at Discharge: Fair Final Diagnosis/Problems List Sinus bradycardia with intermittent ventricular bigeminy, possibly secondary to alpha pham use in addition to the blood pressure medication cardiology consult appreciated no further cardiac workup Hypertriglyceridemia, newly diagnosed Prostate cancer with hx of radiation & current chemotherapy Eey-liohntv-hygvawoky diabetes mellitus Hypertension Obesity Feels better and wants to go home Discharge Disposition: Home Discharge Instruct/Medications Diet: Cardiac 2g Na,low cholest Activity: Light activity Follow Up/Referral: Take blood pressure medications at different times of the day Follow up with the at [place] Medications: None Scheduled Lisinopril (Lisinopril), Unknown Dose PO DAILY, (Reported) Prednisone (Prednisone), 4 TAB PO DAILY, (Reported) Tamsulosin Hcl (Flomax), 1 CAP PO DAILY, (Reported) Miscellaneous Medications Abiraterone Acetate (Zytiga), Unknown Dose PO, (Reported) 39 (Time taken for discharge summary 39 minutes) Discharge Statement: "Patient was advised to return to the ER or call 911 if any headaches, dizziness, shortness of breath, chest pain, abdominal pain, bleeding, fevers, or worsening of medical condition. Patient was counseled about treatment plan, medications, possible side effects, patientverbalized understanding. All questions were answered to the best of my ability. This discharge took greater then 30 minutes in planning, reviewing documentation, counseling the patient, and discussing with other team members." ASSESSMENT ASSESSMENT Hospital Course Improved Assessment Sinus bradycardia with intermittent ventricular bigeminy, possibly secondary to alpha pham use in addition to the blood pressure medication cardiology consult appreciated no further cardiac workup Hypertriglyceridemia, newly diagnosed Prostate cancer with hx of radiation & current chemotherapy Ppj-zjhskof-udomqezhg diabetes mellitus Hypertension Obesity Feels better and wants to go home Date of Service: Jan 29, 2025 Billing Provider: JAZMINE SPEARS MD Common Visit Codes: 13897-RES/OBS DISCH DAY >30min JAZMINE SPEARS MD Jan 29, 2025 13:24
[2025-01-29 14:05] VITALS: BP 143/88; PULSE 54; RESP 18; TEMP 97.6; O2SAT 99
--- NOTE | 2025-01-30 14:37 | DVHSR ---
APPROVED REPORT EXAM: Two-dimensional and M-mode echocardiogram with Doppler and color Doppler. Blood Pressure: 151/82 mmHg INDICATION bradycardia RISK FACTORS Height: 5'11, Weight: 206 DIMENSIONS LVDd4.6 (3.8-5.7cm)LA (2D)4.5 (1.9-4.0cm)Aortic Root3.4 (2.0-3.7cm) LVDs3.1 (2.5-4.0cm)LA (MM) (1.9-4.0cm)Aortic Cusp Exc1.7 (1.5-2.0cm) EF (%) 60.0 (55-70%)Rt. Atrium3.5 (1.9-4.0cm)Asc. Aorta cm IVSd0.9 (0.7-1.1cm)RV (D)3.7 (1.8-2.4cm) PWd1.2 (0.7-1.1cm) Mitral Valve MitralMitral Stenosis E wave0.78m/sMV Mean GR.mmHg A wave0.75m/sMV Peak GR.96mmHg E/A ratio1.02D MVAcm2 DECEL [id number] 1/2 Tim[place] Aortic Valve Aortic ValveAortic Stenosis V11.05m/Stacie Mean GR.6mmHg V21.65m/Stacie Peak GR.11mmHg LVOT Diameter2.1 (1.8-2.4cm)Doppler AVA2.20cm2 Pulmonic Valve V21.04m/s Tricuspid Valve TR Velocity2.28m/s [id number] Conclusion Sinus rhythm. Left atrial enlargement with concentric LVH and mild aortic root dilation. Valves appear to be structurally normal. EF of 65% with normal RV function. Mild TR. No pericardial effusion masses or vegetations.
== END 2025-01-29 14:44 | disposition home or self-care (01) | DRG 316 ==
LOC: ER 10:47 → OVERFLOW 15:34 → TELE-WESTW 17:41
PROVIDERS: ADMIT Family Medicine; ATTEND Family Medicine
DX: R00.8 Other abnormalities of heart beat (principal); E11.9 Type 2 diabetes mellitus without complications; I10 Essential (primary) hypertension; E66.9 Obesity, unspecified; C61 Malignant neoplasm of prostate; N40.0 Benign prostatic hyperplasia without lower urinary tract symptoms; E78.1 Pure hyperglyceridemia; T44.6X5A Adverse effect of alpha-adrenoreceptor antagonists, initial encounter; Z79.899 Other long term (current) drug therapy; Z88.0 Allergy status to penicillin; Z92.3 Personal history of irradiation; Z85.46 Personal history of malignant neoplasm of prostate; Y92.89 Other specified places as the place of occurrence of the external cause; Z79.84 Long term (current) use of oral hypoglycemic drugs
CPT/HCPCS: 36415; 70450; 71045; 80048; 80061; 80307; 81001; 82962; 83036; 83735; 84443; 84484; 85025; 86706; 86803; 93005; 93017; 93306; 99291; G0378; J1815